=== PATIENT | male | born 1975 | race Hispanic/Latino ===

== ENCOUNTER 2020-09-11 20:32 | Emergency (ER) | payer OTHER ==
[~2020-09-11] VITALS: Ht 165.1 cm; Wt 117.0 kg
[2020-09-11] MEDS ORDERED: ACETAMINOPHEN 325 MG TAB PO ONE (21:00)
[2020-09-11] MEDS ORDERED: CASIRIVIMAB/IMDEVIMAB 600 MG in SODIUM CHLORIDE 0.9% 100 ML IV ONE (22:00)
[2020-09-11] MEDS ORDERED: CASIRIVIMAB/IMDEVIMAB 600 MG INJ IV ONE (22:00)
[2020-09-12 00:06] VITALS: BP 132/98
== END 2020-09-12 01:21 | disposition home or self-care (01) ==
LOC: ER 20:56
DX: U07.1 COVID-19 (principal)
CPT/HCPCS: 99283; J7050; U0002

== ENCOUNTER 2023-10-01 10:11 | Emergency (ER) | payer OTHER ==
[~2023-10-01] VITALS: Ht 165.1 cm; Wt 117.0 kg
[2023-10-01 10:11] VITALS: PULSE 99; RESP 18; TEMP 99.1; O2SAT 100
[2023-10-01] MEDS ORDERED: PREDNISONE20 MG PO (10:25)
== END 2023-10-01 10:30 | disposition home or self-care (01) ==
LOC: ER 10:15
DX: L23.9 Allergic contact dermatitis, unspecified cause (principal); I10 Essential (primary) hypertension; E11.9 Type 2 diabetes mellitus without complications
CPT/HCPCS: 99283